=== PATIENT | male | born 1975 | race Caucasian/White ===

== ENCOUNTER 2017-09-20 18:08 | Emergency (ER) | payer OTHER ==
[~2017-09-20] VITALS: Ht 172.7 cm; Wt 77.1 kg
[2017-09-20] MEDS ORDERED: ACETAMINOPHEN-1 EAC1 PO (18:35)
[2017-09-20] MEDS ORDERED: SSD CREAM 1% 5050 GM TOP (18:35)
[2017-09-20] MEDS ORDERED: KEFLEX500 M1 PO (18:35)
[2017-09-20] MEDS ORDERED: HYDROCODONE-AP1 EAC6 PO (18:53)
[2017-09-20 19:50] VITALS: BP 133/77
== END 2017-09-20 19:50 | disposition home or self-care (01) ==
LOC: M.ERS 18:08
DX: T25.221A Burn of second degree of right foot, initial encounter (principal); T25.222A Burn of second degree of left foot, initial encounter; S01.112A Laceration without foreign body of left eyelid and periocular area, initial encounter; T31.0 Burns involving less than 10% of body surface; Y04.8XXA Assault by other bodily force, initial encounter; X17.XXXA Contact with hot engines, machinery and tools, initial encounter; Y93.89 Activity, other specified; Y92.89 Other specified places as the place of occurrence of the external cause; Y99.8 Other external cause status

== ENCOUNTER 2018-05-28 07:37 | Inpatient (IN) | payer OTHER ==
[~2018-05-28] VITALS: Ht 172.7 cm; Wt 65.8 kg
--- NOTE | ~2018-05-28 | OP ---
[address] [address] OPERATIVE REPORT Name: ANTHONY HAMILTON Room: [address] IN M.R.#: [id number] Admission: 05/28/18 Attend Phys: Sandoval Conde MD Discharge: Date of : 73 Report #: [id number] THIS REPORT FOR: //name// CC: Memo Conde SURGEON: Malick Wong MD PREOPERATIVE DIAGNOSIS: Left ureteral stone, 8 mm. POSTOPERATIVE DIAGNOSIS: Left ureteral stone, 8 mm. PROCEDURE: Panendoscopy and cystoscopy, left retrograde pyelogram, left ureteroscopy, holmium laser stone, extraction of stone and double-J stent. COMPLICATIONS: None. INDICATIONS: This is a 43-year-old male with a history of severe left flank pain and large left ureteral stone. He was given options of treatment and wished to have ureteroscopy. He understands risks of bleeding, infection and other procedures, cardiovascular and pulmonary complications. He understands the stent needs to be removed. DESCRIPTION OF PROCEDURE: Informed consent was obtained. The patient was sterilely prepped and draped in dorsal lithotomy position and given preoperative antibiotics. Cystoscopy was carried out. No abnormalities seen in the bladder. Left retrograde pyelogram was performed showing the filling defect probably right at the iliac vessels. I was able to get the sensor wire up and then a rigid ureteroscope up to the stone. It was then broken progressively using the 365 micron fiber at the 80 watt power setting into tiny little fragments, most of them were too small to even retrieve, but there were several 3 and 4 mm pieces that I did extract. I looked right up to the UPJ with the rigid ureteroscope and was unable to see any other pieces. He also did have some other tiny intraparenchymal calcifications that would be inaccessible through the ureteroscope, so ureteroscopy was not attempted into the kidney. A 4.8 x 28 stent was then placed with good curl in the kidney and good curl in the bladder. The plan will be to remove the stent in 7-10 days. By: [id number] Wong MD /nt
[~2018-05-28 07:37] MED LIST: ACETAMINOPHEN-1 EAC1 PO; HYDROCODONE-AP1 EAC6 PO; KEFLEX500 M1 PO; SSD CREAM 1% 5050 GM TOP
[2018-05-28 07:43] VITALS: BP 145/75
[2018-05-28] MEDS ORDERED: NOHOMEMEDICATIONS (07:51)
[2018-05-28 08:33] LABS: HEMATOCRIT 45.4 % (42.0-52.0); HEMOGLOBIN 15.4 gm/dL (14.0-18.0); MCH 30.1 pg (26.0-34.0); MCV 88.5 fL (80.0-100.0); MPV 9.9 fl. (7.2-11.1); NUCLEATED RBCS 0 /100WBC; PLATELET COUNT* 210 thou/uL (150-400); RBC 5.13 mil/uL (4.50-6.00); RDW-CV 12.6 % (10.5-14.5); WBC 11.3 thou/uL (4.0-11.0)
[2018-05-28 08:52] LABS: ALBUMIN 4.1 g/dL (3.4-5.0); CALCIUM 9.1 mg/dL (8.5-10.1); CREATININE 0.9 mg/dL (0.6-1.3); TOTAL BILIRUBIN 0.8 mg/dL (<0.1-1.0); TOTAL PROTEIN 7.2 g/dL (6.4-8.2)
[2018-05-28 09:20] LABS: ABSOLUTE LYMPHOCYTES 0.6 thou/uL (0.8-5.3); ABSOLUTE MONOCYTES 0.7 thou/uL (0.0-1.2); ABSOLUTE NEUTROPHILS 10.1 thou/uL (1.6-8.1)
[2018-05-28 09:29] LABS: PLATELET ESTIMATE ADEQUATE
[2018-05-28 09:30] LABS: ANISOCYTOSIS 1+; POIKILOCYTOSIS 1+
[2018-05-28 09:58] VITALS: BP 126/69
[2018-05-28 10:36] LABS: URINE BILIRUBIN NEGATIVE (Negative); URINE BLOOD 3+ (Negative); URINE CLARITY CLEAR; URINE COLOR YELLOW; URINE GLUCOSE-RANDOM NEGATIVE (Negative); URINE KETONES TRACE (Negative); URINE LEUKOCYTES-REFLEX NEGATIVE (Negative); URINE NITRITE-REFLEX NEGATIVE (Negative); URINE PROTEIN NEGATIVE (Negative); URINE SPECIFIC GRAVITY 1.025 (1.005-1.030); URINE UROBILINOGEN 0.2 E.U./dl (0.2-1.0)
[2018-05-28 10:42] LABS: SQUAMOUS NONE SEEN /LPF (0-3)
[2018-05-28 10:43] LABS: BACTERIA-REFLEX 1-9 Few /HPF (None Seen); CASTS None Seen /LPF (None Seen); CRYSTALS None Seen /LPF (None Seen); URINE RBC 0-2 Rare /HPF (0-2); URINE WBC-REFLEX >25 Many /HPF (0-5)
[2018-05-28 16:38] VITALS: BP 114/49
[2018-05-28 20:00] VITALS: BP 108/53
[2018-05-29 05:04] LABS: MAGNESIUM 2.2 mg/dL (1.8-2.4)
[2018-05-29 13:15] VITALS: BP 108/53
[2018-05-29] MEDS ORDERED: FLOMAX0.4 MG PO (14:47)
[2018-05-29] MEDS ORDERED: CIPRO500 MG PO (14:47)
[2018-05-29] MEDS ORDERED: SENNA PLUS TAB1 EACH PO (14:48)
[2018-05-29] MEDS ORDERED: HYDROCODON-ACE1 EAC7 PO (14:49)
[2018-05-29 15:08] VITALS: BP 108/53
[2018-05-29 15:11] VITALS: BP 108/53
[2018-05-29 17:10] VITALS: BP 108/53
[2018-05-29] MEDS ORDERED: PERCOCET PO (17:54)
== END 2018-05-29 19:00 | disposition home or self-care (01) | DRG 661 ==
LOC: M.ERS 07:37 → M.TBA-ER 09:34 → M.ORTHSURG 09:34
PROVIDERS: Family Medicine; ADMIT Family Medicine
PROC: 0TC78ZZ Extirpation of Matter from Left Ureter, Via Natural or Artificial Opening Endoscopic (ICD-10-PCS; principal; 2018-05-29)
PROC: BT1F1ZZ Fluoroscopy of Left Kidney, Ureter and Bladder using Low Osmolar Contrast (ICD-10-PCS; principal; 2018-05-29)
PROC: 0T778DZ Dilation of Left Ureter with Intraluminal Device, Via Natural or Artificial Opening Endoscopic (ICD-10-PCS; principal; 2018-05-29)
DX: N13.6 Pyonephrosis (principal); Z90.49 Acquired absence of other specified parts of digestive tract; Z87.891 Personal history of nicotine dependence; Z79.899 Other long term (current) drug therapy